=== PATIENT | female | born 1975 | race Caucasian/White ===

== ENCOUNTER → 2016-03-11 | Outpatient (CLI) | payer BC ==
[~2016-03-11] MED LIST: BCPILLS PO; CYCL10TA6 PO; DICY20TA35 PO; IBUP-1450 PO; NXM/40 PO; ONDA4TAB7 SL; PRLSR20 PO; SUMA100T16 PO; TGM300 PO
--- NOTE | 2016-03-11 10:15 | DIAGNOSTIC IMAGING REPORT ---
MRI OF THE CERVICAL SPINE WITHOUT IV CONTRAST CLINICAL HISTORY: Chronic headache and neck pain. COMPARISON STUDY: No priors. TECHNIQUE: MRI of the cervical spine is performed utilizing various T1 and T2-weighted sequences in the axial and sagittal planes. IV contrast was not administered for this examination. FINDINGS: Cervical spine: Vertebral body height and alignment are maintained throughout the cervical spine. There is straightening of cervical lordosis with reversal centered at C5. The atlantodental articulation appears maintained. The spinous processes are intact. No destructive bony lesion is seen. Intervertebral discs: There is mild degenerative disc desiccation and loss of height throughout the cervical spine. Loss of height is greatest from C4-C5 through C6-C7. Spinal cord: The cervical spinal cord is normal in morphology and signal intensity. C2-C3: Unremarkable. C3-C4: Unremarkable. C4-C5: There is a small posterior disc osteophyte complex eccentric to the right. This minimally effaces the ventral subarachnoid space. Uncovertebral and facet arthropathy causes minimal right neural foraminal narrowing. C5-C6: There is a large posterior disc protrusion eccentric to the right. This effaces the right aspect of the cord. Uncovertebral and facet arthropathy cause moderate right and minimal left neural foraminal stenosis. C6-C7: There is a large posterior disc protrusion eccentric to the left. The extruded disc measures up to 7 mm. This effaces the left aspect of the cord. Mild facet arthropathy is of no consequence. C7-T1: Unremarkable. Soft tissues: The prevertebral and paraspinous soft tissues are normal as visualized. Brain parenchyma: Partially visualized brain parenchyma at the skull base is within normal limits. The cerebellar tonsils are normal in configuration. IMPRESSION: 1. There are large disc protrusions eccentric to the right at C5-C6 and eccentric to the left at C6-C7. These both efface the anterior spinal cord. 2. See above discussion for detailed level by level analysis. 3. The cervical spinal cord is normal in morphology and signal intensity. 4. No bony abnormality is seen. Dictated: 03/11/2016 9:43 AM Transcribed: 03/11/2016 10:14 AM [place] Electronically signed by: Bassam Taylor M.D. 03/11/2016 10:59 AM Dictated Date/Time: 03/11/2016 9:43 AM
== END | disposition home or self-care (01) ==
LOC: C.MRIBC 08:51
PROVIDERS: ATTEND Orthopaedic Surgery Orthopaedic Surgery of the Spine
DX: M50.222 Other cervical disc displacement at C5-C6 level (principal); M50.223 Other cervical disc displacement at C6-C7 level

== ENCOUNTER → 2016-04-05 | Outpatient (CLI) | payer BC | END | disposition home or self-care (01) | LOC: C.PAPS 11:33 | PROVIDERS: ATTEND Obstetrics & Gynecology | DX: Z01.419 Encounter for gynecological examination (general) (routine) without abnormal findings (principal) ==

== ENCOUNTER → 2016-05-04 | Outpatient (CLI) | payer BC ==
[2016-05-04 16:49] LABS: BASO % 0.2 %; BASO ABS # 0.02 K/uL (0-0.2); COMPLETE YES; EOS % 0.7 %; HEMATOCRIT 38.1 % (37-47); IG% 0.2 %; LYMPH % 33.8 %; LYMPH ABS # 3.67 K/uL (1.2-3.4); MEAN CORPUSCULAR HEMOGLOBIN 27.5 pg (25-34); MEAN CORPUSCULAR HGB CONC 33.1 g/dl (32-36); MEAN PLATELET VOLUME 10.5 fL (7.4-10.4); MONO % 7.6 %; NEUT % 57.5 %; PLATELET COUNT 372 K/uL (130-400); RED BLOOD COUNT 4.59 M/uL (4.2-5.4); WHITE BLOOD COUNT 10.85 K/uL (4.8-10.8)
[2016-05-04 17:07] LABS: PREG INTERNAL NEGATIVE QC NEG CLEAR BACKGROUND; PREG INTERNAL POSITIVE QC POS CONTROL LINE
== END | disposition home or self-care (01) ==
LOC: C.LABBC 12:22
PROVIDERS: ATTEND Orthopaedic Surgery Orthopaedic Surgery of the Spine
DX: Z01.812 Encounter for preprocedural laboratory examination (principal)

== ENCOUNTER 2016-06-10 08:00 | Observation (INO) | payer BC ==
[2016-06-01 13:52] VITALS: BMI 29.0
--- NOTE | 2016-06-09 12:37 | HISTORY & PHYSICAL EXAMINATION ---
DATE OF ADMISSION: 06/10/2016 SUBJECTIVE AND CHIEF COMPLAINT: She presents with cervical neck pain and cervical migraines. HISTORY OF PRESENT ILLNESS: Jodi is a very pleasant 40-year-old female who has had increasing neck pain and cervical migraines for a total of 3-4 years in duration. It is getting worse over the past couple months. We have tried and she has failed conservative treatment including physical therapy and medication. Nothing really seems to help. She does not describe any upper extremity or neurological difficulties as far as her weakness is concerned. MEDICAL HISTORY: Positive for stomach ulcers. PAST SURGICAL HISTORY: ACL reconstruction. ALLERGIES: No allergies to medications. CURRENT MEDICATIONS: List includes dicyclomine, cimetidine, cyclobenzaprine, sumatriptan, Junel, and esomeprazole. FAMILY MEDICAL HISTORY: Negative for heart disease, stroke, diabetes, blood clots, DVTs, PEs, or cancer. SOCIAL HISTORY: She is . Drinks 1-2 drinks a week. No tobacco use. Moderately active lifestyle. REVIEW OF SYSTEMS: CONSTITUTIONAL: Positive for headaches. GASTROINTESTINAL: Positive for heartburn. MUSCULOSKELETAL: Positive for joint pain and stiffness. PHYSICAL EXAMINATION: CONSTITUTIONAL: Alert and oriented x3, no significant distress. VITAL SIGNS: She is 5 feet 7 inches, she is 190 pounds. CARDIOVASCULAR: S1 and S2 auscultated. No S3 noted. Brisk capillary refill in distal extremities. RESPIRATORY: Equal bilateral breath sounds. No rales, rhonchi or wheezing. GASTROINTESTINAL: Abdomen is soft, nontender to palpation or percussion. No organomegaly was noted. INTEGUMENTARY: No skin rashes, no lesions. No signs of any herpes or zoster infections. No breakage of the skin. MUSCULOSKELETAL: She does have 5/5 strength in upper extremities in her biceps, triceps, flexors and extensors of the wrist as well as human capital consultant strength. No true upper extremity deficits. No hyperreflexia was noted bilaterally. Range of motion of the cervical spine is significantly decreased with forward flexion and extension pain, more pain with extension of the cervical spine and flexion. Mildly positive Spurling's maneuver with rotation and [id number] bending. No atrophy was noted in the musculature of the upper extremities. DIAGNOSTIC TESTS AND RESULTS: X-rays demonstrate straightening of the cervical spine, particularly at C6 and C7 level. There is osteophyte formation as well. MRI was reviewed, shows significant disc herniation at the C5-C6 level impinging upon the right exiting neural foramen. There is also significant disc herniation at C6-C7 impinging upon the left neural foramen. There is cord compression at these levels as well. ASSESSMENT AND DIAGNOSIS: Cervical cord compression at the C5-C6 and C6-C7 level. PLAN: At this time, we are going to preop her for surgery. ACDF surgery with iliac crest bone graft would be of choice. We discussed doing a fusion at the C5-C6 level and then an arthroplasty at the C6-C7 level. We did discuss the surgery, the length of time, the risks, benefits as well as recovery time. She is in agreement with it. We did provide her with a neck brace for postop surgery. Also provide her with pain medications postoperatively as well. We anticipate the surgery will take 120 minutes in duration. Anticipate that she will be at the [facility] for 1-2 days. We will follow her back up in the office in 10-14 days postop for suture removal and evaluation. ARAM
[2016-06-10] VITALS (16 sets, daily range): BP systolic 120–149; BP diastolic 72–91; PULSE 78–107; TEMP 36.3–37.1; O2SAT 95–99; Ht 172.7 cm; Wt 86.3 kg
[~2016-06-10] VITALS: Ht 172.7 cm; Wt 86.3 kg
[~2016-06-10 08:00] MED LIST changes: +CEFAZOLIN 2000 MG/60 ML D5W 60 ML IV SCH; +LACTATED RINGER'S 1000ML 1,000 ML IV SCH; +LACTATED RINGER'S 1000ML IV SCH; +NSS 1000ML IV SCH; -ONDA4TAB7 SL; -PRLSR20 PO; +SCOPOLAMINE 1.5 MG TDSY TD SCH
[2016-06-10] MEDS ORDERED: FENTANYL CITRATE INJ 50 MCG/1 ML 2 ML VIAL ONE (09:31)
[2016-06-10] MEDS ORDERED: HYDROmorphone INJ 2 MG/ML SYR/VIAL ONE (09:31)
[2016-06-10] MEDS ORDERED: MIDAZOLAM HCL 1 MG/ML 2ML VIAL ONE (09:31)
--- NOTE | 2016-06-10 10:13 | History & Physical Bridge Note ---
H&P Re-Evaluation Bridge Note: I have examined the patient, reviewed the History & Physical and in the interval since the performance of the History & Physical I have noted the following changes of clinical significance: No changes noted
[2016-06-10] MEDS ORDERED: THROMBIN FOR SOLN 20000 UNIT KIT ONE (10:17)
[2016-06-10] MEDS ORDERED: GELATIN SPONGE SZ 100 ONE (10:17)
[2016-06-10] MEDS ORDERED: BACITRACIN 50000 UNIT VIAL ONE (10:18)
[2016-06-10] MEDS ORDERED: BUPIVACAINE/EPINEPHRINE 0.5% MPF 1:200,000 30 ML VIAL ONE ×2 (10:18)
[2016-06-10] MEDS ORDERED: PROMETHAZINE HCL INJ 12.5 MG in SODIUM CHLORIDE 0.9% 50ML 50 ML IV PRN (11:00)
[2016-06-10] MEDS ORDERED: HYDROmorphone INJ 2 MG/ML SYR/VIAL IV PRN (11:00)
[2016-06-10] MEDS ORDERED: ONDANSETRON INJ 2 MG/ML 2 ML VIAL IV PRN ×2 (11:00→12:30)
[2016-06-10] MEDS ORDERED: LABETALOL HCL IV 5 MG/ML 20ML IV PRN (11:00)
[2016-06-10] MEDS ORDERED: ATROPINE SULFATE 0.1 MG/ML 5ML SYR IV PRN (11:00)
[2016-06-10] MEDS ORDERED: DiphenhydrAMINE HCL 50 MG/ML VIAL ONE (11:14)
[2016-06-10] MEDS ORDERED: METOCLOPRAMIDE HCL INJ 5 MG/ML 2 ML VIAL ONE (11:14)
[2016-06-10] MEDS ORDERED: PROPOFOL IV EMULSION 10 MG/ML 20 ML VIAL IV ONE (11:14)
[2016-06-10] MEDS ORDERED: ROCURONIUM BROMIDE 10 MG/ML 5 ML VIAL ONE (11:14)
[2016-06-10] MEDS ORDERED: ONDANSETRON INJ 2 MG/ML 2 ML VIAL ONE (11:14)
[2016-06-10] MEDS ORDERED: LIDOCAINE HCL 2% 2 ML VIAL (20MG/ML) ONE (11:14)
[2016-06-10] MEDS ORDERED: DEXAMETHASONE SOD INJ 4 MG/ML VIAL ONE (11:14)
[2016-06-10] MEDS ORDERED: LABETALOL HCL IV 5 MG/ML 20ML IV ONE (11:14)
[2016-06-10] MEDS ORDERED: GLYCOPYRROLATE INJ 0.2 MG/ML VIAL ONE (11:15)
[2016-06-10] MEDS ORDERED: NEOSTIGMINE METHYLSULFATE 5 MG/5 ML SYR ONE (11:15)
--- NOTE | 2016-06-10 12:23 | DIAGNOSTIC IMAGING REPORT ---
Cervical spine, INTRAOPERATIVE FLUOROSCOPY HISTORY: Pain. Fusion.. FLUOROSCOPY TIME: 6 seconds. FINDINGS: Intraoperative fluoroscopy was provided for the cervical spine. 1 fluoroscopic spot images were obtained. IMPRESSION: Fluoroscopy provided for a C5-C7 anterior fusion. Electronically signed by: Bryan Sousa M.D. 06/10/2016 12:21 PM Dictated Date/Time: 06/10/2016 12:20 PM
[2016-06-10] MEDS ORDERED: CYCLOBENZAPRINE HCL 10 MG TAB PO PRN (12:30)
[2016-06-10] MEDS ORDERED: MAGNESIUM HYDROXIDE SUSP 30 ML UDC PO PRN (12:30)
[2016-06-10] MEDS ORDERED: LORAZEPAM INJ 0.5 MG in SYRINGE 0.75 ML IV PRN (12:30)
[2016-06-10] MEDS ORDERED: HYDROCODONE/ACETAMOPHEN 5/325MG TAB PO PRN (12:30)
[2016-06-10] MEDS ORDERED: SUMATRIPTAN SUCC TAB 100 MG TAB PO PRN (12:30)
[2016-06-10] MEDS ORDERED: HYDROmorphone INJ 0.5 MG/0.5 ML SYR IV PRN (12:30)
[2016-06-10] MEDS ORDERED: CIMETIDINE 300 MG TAB PO PRN (12:30)
[2016-06-10] MEDS ORDERED: RACEPINEPHRINE 2.25% NEBU SOLN 0.5 ML VIAL INH PRN (12:30)
[2016-06-10] MEDS ORDERED: DEXAMETHASONE INJ 8 MG in SYRINGE 0 ML IV PRN (12:30)
[2016-06-10] MEDS ORDERED: IBUPROFEN 600 MG TAB PO PRN (12:30)
[2016-06-10] MEDS ORDERED: NALOXONE HCL 0.4 MG/1 ML VIAL/CARP IV PRN (12:30)
--- NOTE | 2016-06-10 12:35 | [facility] Post Operative Brief Note ---
Immediate Operative Summary Operative Date Jun 10, 2016. Pre-Operative Diagnosis Cervical cord compression at the C5-C6 and C6-C7 level. Post-Operative Diagnosis Cervical cord compression at the C5-C6 and C6-C7 level. Procedure(s) Performed C5-C6 and C6-7 Anterior Cervical Discectomy Fusion with Iliac Crest Bone Graft, plus plates Surgeon Dr. Juan Jose Jorgensen Trim Master Operator Surgeon(s) Tate Rivera PA-C Estimated Blood Loss 10mL Findings cord compression Specimens None per surgeon Complication(s) None Disposition Recovery Room / PACU
--- NOTE | 2016-06-10 13:22 | OPERATIVE REPORT ---
DATE OF OPERATION: 06/10/2016 PREOPERATIVE DIAGNOSIS: Spinal cord compression, 2 level disc herniations with arthritis at C5-C6 and C6-C7. POSTOPERATIVE DIAGNOSIS: Same. PROCEDURE: Anterior cervical discectomy and fusion C5-C6 and C6-C7 with anterior iliac crest bone graft, anterior plating from the [place]. COMPLICATIONS: Zero. BLOOD LOSS: 10 mL. SURGEON: Dr. Jorgensen. PRODUCTION PATTERN MAKER: Tate Rivera PA-C. COUNTS: Sponge and needle count correct. DESCRIPTION OF PROCEDURE: The patient was taken to the operating room, a general intubated anesthetic provided to the patient, kept supine, prepped and draped sterile. Scrubbed first with Betadine. We made a transverse skin incision over C5-C6 interval dissecting the soft tissue. We readily came down on the C5-C6 cervical disc level. We were able to put in our retractors. We did a formal discectomy at C5-C6. We did foraminotomies, every visible a piece of disk that I could see was removed at C5-C6. We repeated the exercise at C6-C7. We got lateral to and not beyond the uncovertebral joints, we were back in through the posterior longitudinal ligament, free disc fragments were removed at this level with small pituitary rongeur. I felt pleased with the decompression. We irrigated. We then went to the left iliac crest, made a skin incision, fascia incision and harvested structural autograft. Two small pieces of bone measured roughly 7 mm in height, 13 mm across and 15 mm in depth were placed in the discectomy site C5-C6 and C6-C7. The fit was near anatomic. We then put an anterior plate only 30 mm over the entire construct. We fastened this down, the radiographs looked excellent. We irrigated and closed in layers. Sterile dressings applied. The neck was closed over a drain. The patient was placed in a collar and returned to PACU stable. Again, no apparent complications. I attest to the content of the Intraoperative Record and any orders documented therein. Any exceptio ns are noted below.
--- NOTE | 2016-06-10 13:31 | Anesthesiology Progress Note ---
Anesthesia Post Op Note Date & Time Jun 10, 2016 at 13:30 Vital Signs Pain Intensity: 0 Vital Signs Past 12 Hours Date Time Temp Pulse Resp B/P Pulse Ox O2 Delivery O2 Flow Rate FiO2 06/10/16 13:20 55 16 130/86 100 Nasal Cannula 2 06/10/16 13:10 67 16 126/77 100 Nasal Cannula 2 06/10/16 13:00 53 16 127/81 100 Nasal Cannula 2 06/10/16 12:50 58 16 132/76 100 Mask 10 06/10/16 12:40 60 16 124/75 98 Mask 10 06/10/16 12:32 36.8 62 16 120/75 99 Mask 10 06/10/16 08:20 36.5 78 20 149/91 99 Room Air Notes Mental Status: alert / awake / arousable, participated in evaluation Pt Amnestic to Procedure: Yes Nausea / Vomiting: adequately controlled Pain: adequately controlled Airway Patency, RR, SpO2: stable & adequate BP & HR: stable & adequate Hydration State: stable & adequate Anesthetic Complications: no major complications apparent
[2016-06-10] MEDS ORDERED: HYDROmorphone INJ 1 MG/ML SYR ONE (13:41)
[2016-06-10] MEDS ORDERED: LARYING-O-JET KIT (LTA) EXT ONE ×2 (13:51)
[2016-06-10] MEDS ORDERED: IV FLUIDS COMPLETED PRN (14:15)
[2016-06-10] MEDS: SODIUM CHLORIDE 0.9% 1000ML 1,000 ML IV SCH (14:42)
[2016-06-10] MEDS: ACETAMINOPHEN IV 100 ML IV PRN (14:43)
[2016-06-10] MEDS ORDERED: HYDROmorphone INJ 1 MG/ML SYR IV PRN (14:45)
--- NOTE | 2016-06-10 15:38 | Discharge Instructions ---
Discharge Instructions Date of Service Jun 10, 2016. Admission Reason for Admission: Cervical Disc Herniation C6-C7, C5-C6 Discharge Discharge Diagnosis / Problem: cord compression Discharge Goals Goal(s): Improve function Activity Recommendations Activity Limitations: as noted below Lifting Limitations: until after follow-up appointment Exercise/Sports Limitations: until after follow-up appointment May Resume Sexual Activity: after follow-up appointment Shower/Bathe: keep incision dry Driving or Machine Use: . Instructions / Follow-Up Instructions / Follow-Up MEDICATIONS: Please take your prescriptions as instructed at your pre-op appointment. SPECIAL CARE: The following information is intended to answer some of the common questions and concerns regarding your surgery. Each patient is an individual and receives individual counselling throughout the course of treatment, from diagnosis to surgery all the way through recovery. What follows is not an exhaustive list, but should be a useful guide to some of the common questions and concerns patients have regarding their surgeries. These are not provided to keep you from calling us; rather, they give you something accurate and concrete to reference as you recover from your procedure. If you need us, we are available to you. As always, if you are not sure about something, call us at [phone]. MEDICAL EMERGENCIES: For these conditions, call 911 or go to your local hospital-based Emergency Department - not [facility] or equivalent. * Paralysis * Severe chest pain or difficulty breathing * Swelling or redness of either leg Spine procedures can be rather complex and though complications are rare, they do occur. In such cases, effective advice regarding emergency situations cannot always be addressed over the telephone. You may be referred to the emergency department for more effective management of your problem. Activity Limitations: It is important to give your body time to heal, so please limit your activities : * In general, don't do anything that moves your spine too much. You should avoid contact sports, twisting or heavy lifting while you recover. * 5-10 pounds is all you should attempt to lift. * You should not plan on driving for approximately 3 weeks and you should avoid traveling more than 30-45 minutes at a time. Longer trips should be broken down with walking breaks spaced appropriately. * Physical therapy is not usually required. * Walking and good posture practices will help you recover and regain your function. * Avoid straining or sudden changes in position. * In general, the goal is to take it easy and recover. Don't cause any new problems. Just relax. Showers: * Do not take a bath, use a Jacuzzi or hot tub or otherwise submerge your incision. * It is usually safe to take a shower 4-5 days after your surgery. * Your incision does not require any special creams or ointments. * Simply clean it with soap and water, dry and re-dress with a clean bandage afterwards. Incision: * Keep incision clean, dry and protected until your first follow-up appointment. * Some amount of drainage and redness is normal. Any drainage should be fairly clear and not have a foul odor. * If you feel anything is wrong or you have excessive drainage, please call us. * Your stitches and rosnane will be removed 10-14 days after your surgery. At the time of your first post-op visit. * Neck surgeries are typically closed with a suture underneath the skin. The steri-strips over the incision should be maintained until we see you in the office. Bracing: * You may be provided with a back or neck brace to encourage good posture and prevent injury. It will remind you not to do too much as you heal and will alert others to the fact that you have had a surgery. * Back braces may be removed for showers and when you are resting at home. They must be worn when you are walking around for any period of time or for travel. * For neck surgery, you will likely be provided with two cervical collars. The soft collar (Fountain or foam rubber) is worn most commonly throughout the day and while sleeping. The plastic collar (provided at the hospital) is for showering/bathing. * Except while eating, collars should remain in place. More specifically, bracing is provided for a purpose and should be worn. * Please obtain your brace or collars prior to your operation and bring them to the hospital with you on the day of surgery. * You should also bring your collars to your post-op appointment with Dr. Jorgensen. You should always take good care of your body and practice healthy habits, especially following surgery. You should: * Follow your doctor's treatment plan * Sit and stand properly with good posture (ears over shoulders, shoulders over hips) Don't slouch * Learn to lift correctly * Exercise regularly (low-impact aerobic exercise is especially good, but check with your doctor first) * Generally, be up and walking for 5-10 minutes at a time at least 3-4 times per day from the day you get home * Increasing walking to tolerance until you can walk for 20-30 minutes at a time * Attain and maintain a healthy body weight * Eat healthy foods ( a well-balanced, low-fat diet rich in fruits and vegetables) and get enough calcium * Avoid excessive use of alcohol When to call our office - If you notice any of the following: * Increased pain not relieve by pain medicine * Fevers greater then 100 degrees F, chills or flu symptoms * Increased redness around incision * Drainage from the incision that is not clear * Any foul smelling drainage * Swelling or fluid collection beneath the skin Miscellaneous: * In the hospital, you may be given a walker or cane for support while walking. These are temporary needs and are intended to prevent injuries due to falls. You may discontinue them when you feel strong and steady enough on your feet. * Sleep in a comfortable position. We find that many patients find a lounge chair or recliner with several pillows to be beneficial in the early post-operative period. * The support stockings should be used for 7-10 days and may be discontinued when you are back to walking more and conducting usual household activities. No problem is insignificant. We are here to help you and get you well. Contact us at [phone]. Definitions: Foraminotomy: If part of the disc or a bone spur (osteophyte) is pressing on a nerve as it leaves the vertebra (through an exit called the foramen), a foraminotomy may be done. Otomy means "to make an opening." A foraminotomy is making the opening of the foramen larger, so the nerve can exit without being compressed. Laminotomy: Similar to the foraminotomy, a laminotomy makes a larger opening, this time in your bony plate protecting your spinal canal and spinal cord (the lamina). The lamina may be pressing on your nerve, so the surgeon may make more room for the nerves using a laminotomy. Laminectomy: Sometimes, a laminotomy is not sufficient. The surgeon may need to remove all or part of the lamina. This procedure is called a laminectomy. This can often be done at many levels without any harmful effects. Current Hospital Diet Patient's current hospital diet: Full Liquid Diet, advance as tolerated Discharge Diet Recommended Diet: Full Liquid Diet Procedures Procedures Performed: C5-C6 and C6-7 Anterior Cervical Discectomy Fusion with Iliac Crest Bone Graft, plus plates Pending Studies Studies pending at discharge: no Medical Emergencies . Who to Call and When: Medical Emergencies: If at any time you feel your situation is an emergency, please call 911 immediately. . Non-Emergent Contact Non-Emergency issues call your: Surgeon Call Non-Emergent contact if: you have any medication questions . "Provider Documentation" section prepared by Juan Jose Jorgensen. VTE Core Measure Inpt VTE Proph given/why not?: Treatment not indicated
[2016-06-10] MEDS: CHECK SCOPOLAMINE PATCH PLACEMENT SCH ×2 (16:10→23:30)
[2016-06-10] MEDS: CEFAZOLIN IV 2,000 MG in DEXTROSE 5% 50ML 50 ML IV SCH (18:08)
[2016-06-10] MEDS: DOCUSATE SODIUM 100 MG CAP PO SCH (20:19)
[2016-06-10] MEDS: DEXAMETHASONE INJ 6 MG in SYRINGE 0 ML IV SCH (20:19)
[2016-06-11] VITALS (10 sets, daily range): BP systolic 119–151; BP diastolic 79–90; PULSE 82–113; TEMP 36.8–37.1; O2SAT 95–98
[2016-06-11] MEDS: SODIUM CHLORIDE 0.9% 1000ML 1,000 ML IV SCH (02:07)
[2016-06-11] MEDS: CEFAZOLIN IV 2,000 MG in DEXTROSE 5% 50ML 50 ML IV SCH ×2 (02:07→09:34)
[2016-06-11] MEDS: ACETAMINOPHEN IV 100 ML IV PRN (03:16)
[2016-06-11] MEDS: DEXAMETHASONE INJ 6 MG in SYRINGE 0 ML IV SCH ×2 (03:49→12:04)
--- NOTE | 2016-06-11 08:31 | Anesthesiology Progress Note ---
Anesthesia Post Op Note Date & Time Jun 11, 2016 at 08:30 Vital Signs Pain Intensity: 5.0 Vital Signs Past 12 Hours Date Time Temp Pulse Resp B/P Pulse Ox O2 Delivery O2 Flow Rate FiO2 06/11/16 08:10 14 97 Room Air 06/11/16 08:00 36.8 94 18 135/90 98 Room Air 06/11/16 06:00 37.1 113 16 127/80 96 Room Air 06/11/16 03:50 36.9 94 16 119/79 98 Nasal Cannula 1.0 06/11/16 03:30 82 14 98 Nasal Cannula 1.0 06/11/16 02:05 37.0 107 14 138/88 97 Nasal Cannula 1.0 Humidified Oxygen 06/10/16 23:23 84 16 97 Nasal Cannula 2.0 06/10/16 23:05 36.7 90 16 143/86 98 Nasal Cannula 2.0 Humidified Oxygen 06/10/16 23:05 98 Nasal Cannula 2.0 06/10/16 22:00 37.1 97 16 127/75 98 Nasal Cannula 2.0 Humidified Oxygen Notes Mental Status: alert / awake / arousable, participated in evaluation Anesthetic Complications: no major complications apparent
[2016-06-11] MEDS ORDERED: PANTOprazole SOD 40 MG TAB PO SCH (09:00)
[2016-06-11] MEDS: CHECK SCOPOLAMINE PATCH PLACEMENT SCH (09:28)
[2016-06-11] MEDS: DOCUSATE SODIUM 100 MG CAP PO SCH (09:29)
--- NOTE | 2016-06-11 12:08 | DISCHARGE SUMMARY ---
DATE OF DISCHARGE: 06/11/2016. SUBJECTIVE: She is s alert, oriented stabilized, pain control. Vital signs stable. Labs not indicated. ASSESSMENT: Status post cervical spine fusion, 2-level anterior cervical discectomy and fusion improved, stable. DISPOSITION: Will discharge her home later on today. Instructions, precautions provided in the office and in the hospital. Prescription is on her chart. Instructions with her collar has been provided as well. We will see her back in approximately 11 days.
[2016-06-12] MEDS ORDERED: BISACODYL 5 MG TABEC PO PRN (06:00)
[2016-06-12] MEDS ORDERED: BISACODYL 10 MG SUPP PR PRN (06:00)
== END 2016-06-11 14:11 | disposition home or self-care (01) ==
LOC: ENRESERVTM → ENRESERVDT → C.ACU 08:00 → C.3E 12:35
PROVIDERS: ADMIT Orthopaedic Surgery Orthopaedic Surgery of the Spine; ATTEND Orthopaedic Surgery Orthopaedic Surgery of the Spine
DX: M50.20 Other cervical disc displacement, unspecified cervical region (principal)

== ENCOUNTER → 2016-09-29 | Outpatient (CLI) | payer BC ==
[~2016-09-29] MED LIST changes: -CEFAZOLIN 2000 MG/60 ML D5W 60 ML IV SCH; -LACTATED RINGER'S 1000ML 1,000 ML IV SCH; -LACTATED RINGER'S 1000ML IV SCH; -NSS 1000ML IV SCH; -SCOPOLAMINE 1.5 MG TDSY TD SCH
[2016-10-01 00:44] LABS: CHLAMYDIA TRACH RNA*** NOT DETECTED (NOT DETECTED); GC (NEIS GONORRHOEAE)RNA** NOT DETECTED (NOT DETECTED)
== END | disposition home or self-care (01) ==
LOC: C.LABSPEC 10:59
PROVIDERS: ATTEND Physician Assistant
DX: Z30.430 Encounter for insertion of intrauterine contraceptive device (principal)

== ENCOUNTER → 2016-12-13 | Outpatient (CLI) | payer BC | END | disposition home or self-care (01) | LOC: C.PATHSPEC 17:06 | PROVIDERS: ATTEND Dermatology | DX: L91.8 Other hypertrophic disorders of the skin (principal) ==

== ENCOUNTER → 2017-03-03 | Day surgery (SDC) | payer BC ==
[2017-02-14 13:48] VITALS: Ht 171.5 cm; Wt 88.6 kg
[~2017-03-03] VITALS: Ht 171.5 cm; Wt 88.6 kg
[~2017-03-03] MED LIST changes: +ATROPINE SULFATE 0.1 MG/ML 5ML SYR IV PRN; -BCPILLS PO; +BUPIVACAINE/EPINEPHRINE 0.25% 1:200,000 30 ML VIAL ONE; +CEFAZOLIN 2000MG IV PUSH 10 ML IV SCH; -CYCL10TA6 PO; +DEXAMETHASONE SOD INJ 4 MG/ML VIAL ONE; +DOXY100C76 PO; +EpHEDrine SULFATE INJ 50 MG/ML AMP IV PRN; +FENTANYL CITRATE INJ 50 MCG/1 ML 2 ML VIAL IV PRN; +FENTANYL CITRATE INJ 50 MCG/1 ML 2 ML VIAL ONE; +GABA-113 PO; +HYDR-5688 PO; +HYDROCODONE/ACETAMOPHEN 5/325MG TAB PO PRN; -IBUP-1450 PO; +IUD'IUD; +KETOROLAC TROMETHAMINE 30 MG/ML VIAL IV. PRN; +LACTATED RINGER'S 1000ML 1,000 ML IV SCH; +LIDOCAINE HCL 2% 2 ML VIAL (20MG/ML) ONE; +MIDAZOLAM HCL 1 MG/ML 2ML VIAL ONE; +ONDANSETRON INJ 2 MG/ML 2 ML VIAL IV PRN; +ONDANSETRON INJ 2 MG/ML 2 ML VIAL ONE; +PROPOFOL IV EMULSION 10 MG/ML 20 ML VIAL IV ONE; +SODIUM CHLORIDE 0.9% 1000ML 1,000 ML IV SCH; -SUMA100T16 PO; -TGM300 PO
--- NOTE | 2017-03-03 08:44 | [facility] Post Operative Brief Note ---
Immediate Operative Summary Operative Date Mar 03, 2017. Pre-Operative Diagnosis Left cubital tunnel syndrome Post-Operative Diagnosis Same as preop Procedure(s) Performed Left Cubital Tunnel Release Surgeon Dr. Davenport Intake Counselor Surgeon(s) Nahum June PA-C Estimated Blood Loss 5 mL Findings as above Specimens None Complication(s) None Disposition Recovery Room / PACU
--- NOTE | 2017-03-03 08:51 | Discharge Instructions-SurgCtr ---
Discharge Instructions Date of Service Mar 03, 2017. Visit Reason for Visit: Ulnar Nerve Entrapement Discharge Discharge Diagnosis / Problem: SAME ABOVE Discharge Goals Goal(s): Decrease discomfort, Improve function Activity Recommendations Activity Limitations: as noted below Lifting Limitations: until after follow-up appointment Exercise/Sports Limitations: until after follow-up appointment Shower/Bathe: may shower/bathe in 3 days Anesthesia . Post Anesthesia Instructions: If you have had General Anesthesia or IV Sedation: * Do not drive today. * Resume driving when surgeon permits. * Do not make important decisions or sign legal documents today. * Call surgeon for: 1. Temperature elevations greater than 101 degrees F. 2. Uncontrollable pain. 3. Excessive bleeding. 4. Persistent nausea and vomiting. 5. Medication intolerance (nausea, vomiting or rash). * For nausea and vomiting use only clear liquids such as: tea, soda, bouillon until nausea subsides, then gradually increase diet as tolerated. * If you have any concerns or questions, call your surgeon's office. If physician is unavailable and it is an emergency, call 911 or go to the nearest emergency room. . Instructions / Follow-Up Instructions / Follow-Up MEDICATIONS: * Resume previous medications unless instructed otherwise by your surgeon. * Always take pain medication on a full stomach or with food to avoid upset stomach. * Do not drink alcohol or drive while taking narcotics. * Ibuprofen or Tylenol may be taken if narcotic not needed. SPECIAL CARE INSTRUCTIONS: __ None _X_ Keep extremity elevated and iced x 48 hours; apply ice 20-30 minutes 8-10 times/day. May remove at night. _X_ Sling (WEAR FOR COMFORT ONLY) __24 hrs/day __ Remove at night __ Shoulder Immobilizer __ 24 hrs/day __ Remove at night _X_ Dressing __ Maintain until seen in office, may shower with plastic over site _X_ Remove dressings in 72 hours. MAY SHOWER SOONER IF COVERED WITH PLASTIC BAG _X_ Cover incisions with band-aids after showering __ Do not remove steri-strips Call physician if chills or temperature rises above 102 degrees or pain unrelieved by prescribed pain medications at . . Diet Recommendations Home Diet: no limitations Fluid Restriction: None Procedures Procedures Performed: Left Cubital Tunnel Release Pending Studies Studies pending at discharge: no Work Instructions Return To Work: after follow-up Lifting Limitations: no more than 10 pounds Medical Emergencies . Who to Call and When: Medical Emergencies: If at any time you feel your situation is an emergency, please call 911 immediately. . Non-Emergent Contact Non-Emergency issues call your: Primary Care Provider Call Non-Emergent contact if: you have a fever, temperature is above 101.5 . . "Provider Documentation" section prepared by Nahum June. .
--- NOTE | 2017-03-03 09:27 | OPERATIVE REPORT ---
DATE OF OPERATION: 03/03/2017 PREOPERATIVE DIAGNOSIS: Compressive neuropathy of the left elbow. POSTOPERATIVE DIAGNOSIS: Same. PROCEDURE: Left cubital tunnel release in situ. SURGEON: Dr. Tate Davenport. CYCLE SPECIALIST: Emile June PA-C, whose assistance was necessary for retraction and closure. ANESTHESIA: General. COMPLICATIONS: None. CONDITION: Stable to PACU. INDICATIONS: Jodi is a pleasant 41-year-old female who presented to my office with complaints of paresthesias in the ulnar nerve distribution of her left hand. EMG study was diagnostic for a compressive neuropathy at the cubital tunnel. After failing conservative treatment, she elected to undergo an open cubital tunnel release in situ. DESCRIPTION OF PROCEDURE: On 03/03/2017, she arrived at [facility] for the above procedure. She was seen in the preoperative holding area and the operative extremity was identified and signed. She was given a preoperative antibiotic, taken back to the operating room, laid on the table in supine position and put under general anesthesia. The left elbow was then prepped and draped in sterile fashion. Time-out was done and the patient's operative extremity was properly identified. A curvilinear incision was made directly over the cubital tunnel. Dissection was taken down through the fascia with care not to disrupt the cutaneous nerves. There was a small lipoma in the area that was removed. The cubital tunnel was released and the fascia was released at the flexor pronator mass and the medial intermuscular septum was released. Care was taken to ensure complete release of the nerve both proximally and distally. The elbow was then flexed and the nerve did not subluxate anteriorly. The wound was then irrigated and closed with 3-0 Vicryl and 4-0 nylon suture. She was placed in a soft compressive dressing, extubated, transferred to a [facility] and taken to the postanesthesia care unit in stable condition. She tolerated the procedure well. I attest to the content of the Intraoperative Record and any orders documented therein. Any exception s are noted below.
[2017-03-03 09:31] VITALS: TEMP 36.7
--- NOTE | 2017-03-03 09:33 | Anesthesia Progress Nt - [facility] ---
Anesthesia Post Op Note Date & Time Mar 03, 2017 at 09:33 Vital Signs Pain Intensity: 0 Vital Signs Past 12 Hours Date Time Temp Pulse Resp B/P (MAP) Pulse Ox O2 Delivery O2 Flow Rate FiO2 03/03/17 09:21 36.8 102 17 150/93 95 Room Air 03/03/17 09:20 150/93 03/03/17 09:19 101 15 03/03/17 09:19 99 15 99 03/03/17 09:15 144/97 03/03/17 09:14 104 17 03/03/17 09:14 104 17 99 03/03/17 09:10 147/90 03/03/17 09:09 110 12 100 03/03/17 09:09 108 12 03/03/17 09:05 149/91 03/03/17 09:04 106 9 03/03/17 09:04 104 9 100 03/03/17 09:00 152/93 03/03/17 08:59 105 7 03/03/17 08:59 108 7 100 03/03/17 08:55 158/90 03/03/17 08:54 120 19 99 03/03/17 08:54 120 19 03/03/17 08:50 138/84 03/03/17 08:50 163/86 03/03/17 08:49 36.7 125 12 163/86 99 Mask 6 03/03/17 07:34 36.4 86 16 146/96 (113) Room Air Notes Mental Status: alert / awake / arousable, participated in evaluation Pt Amnestic to Procedure: Yes Nausea / Vomiting: adequately controlled Pain: adequately controlled Airway Patency, RR, SpO2: stable & adequate BP & HR: stable & adequate Hydration State: stable & adequate Anesthetic Complications: no major complications apparent
[2017-03-03 10:31] VITALS: BP 130/88; PULSE 89; O2SAT 96
== END | disposition home or self-care (01) ==
LOC: X.SURG 07:22
PROVIDERS: ATTEND Orthopaedic Surgery
DX: G56.22 Lesion of ulnar nerve, left upper limb (principal); K21.9 Gastro-esophageal reflux disease without esophagitis

== ENCOUNTER → 2017-04-21 | Day surgery (SDC) | payer BC ==
[2017-03-29 15:22] VITALS: Ht 171.5 cm; Wt 88.6 kg
[~2017-04-21] VITALS: Ht 171.5 cm; Wt 88.6 kg
[~2017-04-21] MED LIST changes: -BUPIVACAINE/EPINEPHRINE 0.25% 1:200,000 30 ML VIAL ONE; -CEFAZOLIN 2000MG IV PUSH 10 ML IV SCH; +CEFAZOLIN 2000MG IV PUSH 15 ML IV SCH; -DEXAMETHASONE SOD INJ 4 MG/ML VIAL ONE; -DICY20TA35 PO; +HYDROCODONE/ACETAMIN 5/325MG TAB PO PRN; -HYDROCODONE/ACETAMOPHEN 5/325MG TAB PO PRN; -KETOROLAC TROMETHAMINE 30 MG/ML VIAL IV. PRN; +LIDOCAINE HCL 2% LOCAL 20 ML VIAL ONE; -ONDANSETRON INJ 2 MG/ML 2 ML VIAL ONE; +TGM300 PO
--- NOTE | 2017-04-21 10:57 | [facility] Post Operative Brief Note ---
Immediate Operative Summary Operative Date Apr 21, 2017. Pre-Operative Diagnosis Right Carpal Tunnel Syndrome Post-Operative Diagnosis same as pre op Procedure(s) Performed Right Carpal Tunnel Release Surgeon Dr Davenport Chief Building Inspector Surgeon(s) MOLLY Soto Estimated Blood Loss 5ml Findings Consistent with Post-Op Diagnosis Specimens none Anesthesia Type MAC Complication(s) none Disposition Disposition: Recovery Room / PACU
--- NOTE | 2017-04-21 11:00 | Discharge Instructions-[facility] ---
Discharge Instructions Date of Service Apr 21, 2017. Visit Reason for Visit: Right Carpal Tunnel Syndrome Discharge Discharge Diagnosis / Problem: SAME ABOVE Discharge Goals Goal(s): Decrease discomfort, Improve function Activity Recommendations Activity Limitations: as noted below Lifting Limitations: until after follow-up appointment Shower/Bathe: may shower/bathe in 3 days Anesthesia . Post Anesthesia Instructions: If you have had General Anesthesia or IV Sedation: * Do not drive today. * Resume driving when surgeon permits. * Do not make important decisions or sign legal documents today. * Call surgeon for: 1. Temperature elevations greater than 101 degrees F. 2. Uncontrollable pain. 3. Excessive bleeding. 4. Persistent nausea and vomiting. 5. Medication intolerance (nausea, vomiting or rash). * For nausea and vomiting use only clear liquids such as: tea, soda, bouillon until nausea subsides, then gradually increase diet as tolerated. * If you have any concerns or questions, call your surgeon's office. If physician is unavailable and it is an emergency, call 911 or go to the nearest emergency room. . Instructions / Follow-Up Instructions / Follow-Up MEDICATIONS: * Resume previous medications unless instructed otherwise by your surgeon. * Always take pain medication on a full stomach or with food to avoid upset stomach. * Do not drink alcohol or drive while taking narcotics. * Ibuprofen or Tylenol may be taken if narcotic not needed. SPECIAL CARE INSTRUCTIONS: __ None _X_ Keep extremity elevated and iced x 48 hours; apply ice 20-30 minutes 8-10 times/day. May remove at night. __ Sling __24 hrs/day __ Remove at night __ Shoulder Immobilizer __ 24 hrs/day __ Remove at night _X_ Dressing __ Maintain until seen in office, may shower with plastic over site _X_ Remove dressings in 72 hours and then may shower _X_ Cover incisions with band-aids after showering __ Do not remove steri-strips Call physician if chills or temperature rises above 102 degrees or pain unrelieved by prescribed pain medications at . . Diet Recommendations Home Diet: no limitations Fluid Restriction: None Procedures Procedures Performed: Right Carpal Tunnel Release Pending Studies Studies pending at discharge: no Work Instructions Return To Work: after follow-up Lifting Limitations: no more than 10 pounds Medical Emergencies . Who to Call and When: Medical Emergencies: If at any time you feel your situation is an emergency, please call 911 immediately. . Non-Emergent Contact Non-Emergency issues call your: Primary Care Provider Call Non-Emergent contact if: you have a fever, temperature is above 101.5 . . "Provider Documentation" section prepared by Nahum June. .
[2017-04-21 11:01] VITALS: TEMP 36.6
--- NOTE | 2017-04-21 11:08 | OPERATIVE REPORT ---
DATE OF OPERATION: 04/21/2017 PREOPERATIVE DIAGNOSIS: Carpal tunnel syndrome of the right wrist. POSTOPERATIVE DIAGNOSIS: Same. PROCEDURE: Open right carpal tunnel release. SURGEON: Dr. Tate Davenport. RESEARCH AND INSIGHTS EXECUTIVE: Emile June PA-C, whose assistance was necessary for positioning the hand and helping with retraction and closure. ANESTHESIA: Local with sedation. COMPLICATIONS: None. CONDITION: Stable to PACU. INDICATIONS: Jodi is a pleasant 41-year-old female who was complaining of paresthesias in her right hand. EMG showed carpal tunnel syndrome of the right wrist. After failing conservative treatment, she elected to undergo an open carpal tunnel release. On 04/21/2017 she arrived at [facility] for the above procedure. She was seen in the preoperative holding area and the operative extremity was identified and signed. She was given a preoperative antibiotic, taken back to the operating room, laid on the table in supine position and put under basic sedation. The right hand was then prepped and draped in sterile fashion. Time-out was done and the patient and operative extremity was properly identified. A longitudinal incision was made directly over the transverse carpal ligament. Dissection was taken down through the palmar fascia and the transverse carpal ligament was exposed. A knife and tenotomy scissors were used to completely resect the transverse carpal ligament. Care was taken to ensure complete proximal and distal resection. Care was taken not to disrupt the motor branch or the palmar cutaneous branch. The wound was then irrigated and closed with 4-0 nylon suture in a mattress fashion. She was placed in a soft dressing and taken to the postanesthesia care unit in stable condition. She tolerated the procedure well. I attest to the content of the Intraoperative Record and any orders documented therein. Any exception s are noted below.
--- NOTE | 2017-04-21 11:09 | Anesthesia Progress Nt - [facility] ---
Anesthesia Post Op Note Date & Time Apr 21, 2017 at 11:09 Vital Signs Pain Intensity: 0 Vital Signs Past 12 Hours Date Time Temp Pulse Resp B/P (MAP) Pulse Ox O2 Delivery O2 Flow Rate FiO2 04/21/17 11:01 36.6 98 16 130/79 (96) 98 Room Air 04/21/17 09:53 37.1 84 22 147/99 (115) 100 Room Air Notes Mental Status: alert / awake / arousable, participated in evaluation Pt Amnestic to Procedure: Yes Nausea / Vomiting: adequately controlled Pain: adequately controlled Airway Patency, RR, SpO2: stable & adequate BP & HR: stable & adequate Hydration State: stable & adequate Anesthetic Complications: no major complications apparent
[2017-04-21 11:29] VITALS: BP 132/89; PULSE 81; O2SAT 99
== END | disposition home or self-care (01) ==
LOC: X.SURG 09:35
PROVIDERS: ATTEND Orthopaedic Surgery
DX: G56.01 Carpal tunnel syndrome, right upper limb (principal); K21.9 Gastro-esophageal reflux disease without esophagitis; Z79.3 Long term (current) use of hormonal contraceptives